=== PATIENT | male | born 1995 | race Caucasian/White ===

== ENCOUNTER 2022-03-31 18:19 | Emergency (ER) | payer MEDICARE, MEDICAID, SELFPAY ==
[2022-03-31 18:21] VITALS: BP 118/90; PULSE 115; RESP 14; TEMP 37.1; O2SAT 98; BMI 18.7
--- NOTE | 2022-03-31 18:37 | EDS_ITS ---
HPI History of Present Illness Chief Complaint: Lower Extremity Injury Detail of Chief Complaint: Nerve pain in legs Informant: patient Onset/Context/Timing Onset: Days Context: Gradual Onset Current Severity: Mild Maximum Severity: Moderate Narrative Narrative: Patient referred from urgent care secondary to leg pain/nerve pain. Patient has a history of cerebral palsy and diabetes. He has chronic muscle weakness. He also has a history of blood clots and is on Eliquis and aspirin. Patient reports recently getting out of the correction after a 4-month stay for rehab. He is noted increased pain to the posterior calves bilaterally, left more than right over the past couple of days. He does admit to sitting with his legs down more now that he is out of the correction but states that is the most comfortable position. He has noted increased swelling in his left leg especially. He denies any missed doses of his Eliquis. He denies back pain. No fever or chills. [facility] Medical History (Updated 03/31/22 @ 20:[address] Paz Laird MD) Acute thrombosis of left internal jugular vein Asthma Cataract of right eye Cerebral palsy Chronic diarrhea Cystic acne Diabetes DVT (deep venous thrombosis) Edema of both feet Failure to thrive Fatigue Iron deficiency anemia [facility] (current) use of insulin Low back pain Mass of right lung Muscle weakness Pancreatic insufficiency Pervasive developmental disorder Protein-calorie malnutrition, severe PTSD (post-traumatic stress disorder) Punctate keratitis of both eyes Recurrent UTI Secondary pancreatic insufficiency Sensorineural hearing loss of combined sites Thrombocytopenia Thrombocytosis Type 2 diabetes mellitus Urinary retention Home Medications FreeStyle Rihcard 14 Day [place] 03/31/22 [History Last Taken Unknown] FreeStyle Richard 14 Day Sensor 03/31/22 [History Last Taken Unknown] Ventolin HFA 03/31/22 [History Last Taken Unknown] acetaminophen 325 mg PO Q6H 03/31/22 [History Last Taken Unknown] apixaban [Eliquis] 5 mg PO BID 03/31/22 [History Last Taken Unknown] aspirin 81 mg PO DAILY 03/31/22 [History Last Taken Unknown] baclofen 5 mg PO TID 03/31/22 [History Last Taken Unknown] canagliflozin [Invokana] mg 03/31/22 [History Last Taken Unknown] diphenhydramine HCl [Benadryl] 25 mg PO TID PRN 03/31/22 [History Last Taken Unknown] diphenoxylate-atropine [Lomotil] 1 tab PO DAILY PRN 03/31/22 [History Last Taken Unknown] ferrous sulfate 325 mg PO DAILY 03/31/22 [History Last Taken Unknown] fluorometholone [FML Liquifilm] 1 drp 03/31/22 [History Last Taken Unknown] fluticasone propionate [Flovent Diskus] 2 inh INHALATION BID 03/31/22 [History Last Taken Unknown] furosemide 20 mg PO DAILY 03/31/22 [History Last Taken Unknown] gabapentin 100 mg PO TID 03/31/22 [History Last Taken Unknown] insulin aspart U-100 SUBCUT 03/31/22 [History Last Taken Unknown] insulin glargine [Lantus Solostar U-100 Insulin] SUBCUT 03/31/22 [History Last Taken Unknown] ketorolac 1 drp OPHTHALMIC (EYE) Q6H 03/31/22 [History Last Taken Unknown] lidocaine 1 patch TRANSDERMAL DAILY 03/31/22 [History Last Taken Unknown] xekfyh-hilsawbo-otjjnce [Creon] 3 cap PO TID 03/31/22 [History Last Taken Unknown] loperamide 2 mg PO Q6H 03/31/22 [History Last Taken Unknown] melatonin 5 mg PO QHS 03/31/22 [History Last Taken Unknown] menthol-zinc oxide 1 ea TOPICAL PRN PRN 03/31/22 [History Last Taken Unknown] mirtazapine 7.5 mg PO QHS 03/31/22 [History Last Taken Unknown] naproxen 500 mg PO Q12H 03/31/22 [History Last Taken Unknown] nut.tx.gluc.intol,lac-free,soy [Glucerna] 237 ml PO TID 03/31/22 [History Last Taken Unknown] pioglitazone 15 mg PO DAILY 03/31/22 [History Last Taken Unknown] potassium chloride 10 meq PO DAILY 03/31/22 [History Last Taken Unknown] prednisolone sodium phosphate 1 drp EACH EYE BID 03/31/22 [History Last Taken Unknown] prednisone 40 mg PO DAILY #10 tab 03/31/22 [Rx Last Taken Unknown] propylene glycol [Systane Complete] 1 drp EACH EYE TID 03/31/22 [History Last Taken Unknown] sodium bicarbonate 325 mg PO BID 03/31/22 [History Last Taken Unknown] soluble corn fiber [FiberCel] 5 g PO DAILY 03/31/22 [History Last Taken Unknown] tamsulosin 0.4 mg PO DAILY 03/31/22 [History Last Taken Unknown] tizanidine 4 mg PO TID PRN 03/31/22 [History Last Taken Unknown] Allergy/AdvReac Type Severity Reaction Status Date / Time No Known Allergies Allergy Verified 03/31/22 18:31 Surgical History (Updated 03/31/22 @ 19:07 by Ian Callaway) Status post cataract extraction and insertion of intraocular lens of left eye Social History Smoking Status: Never smoker ROS ROS ED Constitutional Constitutional ED: Denies chills or fever(s) Eyes Eyes: Denies change in vision ENT ENT ED: Denies sore throat Cardiovascular Cardiovascular: Denies chest pain Respiratory/Chest Respiratory/Chest: Denies cough or dyspnea Gastrointestinal Gastrointestinal: Denies abdominal pain, nausea or vomiting Genitourinary Genitourinary ED: Denies dysuria Musculoskeletal Musculoskeletal: Reports myalgias; Denies back pain or neck pain Integumentary Denies rash Neurologic Neurologic: Denies headache(s) or paresthesias Allergic/Immunologic Allergic/Immunologic ED: Denies urticaria EXAM Physical Exam Const Vital Signs: 03/31/22 18:21 Temperature 98.7 F Temperature Source Temporal Pulse Rate 115 H Respiratory Rate 14 Blood Pressure 118/90 H Blood Pressure Mean 99 Pulse Ox 98 Oxygen Delivery Method Room Air Positive well nourished and well developed General Appearance ED: well developed HEENT Reports moist mucous membranes Eyes PERRL Neck supple Chest Wall inspection of chest normal and palpation of chest normal Resp normal respiratory effort and clear to auscultation bilaterally Cardio regular rate and regular rhythm GI non-tender Palpation: soft Back/Spine Back/Spine Narrative: Scoliosis noted. No reproducible tenderness. Extremity Extremity Narrative: Tenderness3+ edema to the left lower leg. 1-2+ edema to the right lower leg. In the distal left lower leg and ankle. No erythema or excessive warmth. Good distal pulses. No tenderness at the knee or hip joint. Neuro oriented x3 Sensorium / Orientation: alert Psych mental status grossly normal Skin no rashes or lesions noted MDM MDM MDM Narrative Medical decision making narrative: I was able to review his recent discharge summary from [facility]. Patient had been admitted with Klebsiella pneumonia and bacteremia. Due to his multiple comorbid conditions blood work was obtained along with a venous ultrasound of the left leg. Lab Data Labs: Laboratory Results - last 24 hr 03/31/22 03/31/22 18:55 18:55 WBC 10.5 RBC 3.83 L Hgb 10.3 L Hct 33.1 L MCV 86.4 MCH 26.9 L MCHC 31.1 L RDW Std Deviation 49.5 H RDW Coeff of Kendra 15.6 H Plt Count 730 H MPV 8.6 Immature Gran % (Auto) 0.300 Neut % (Auto) 55.7 Lymph % (Auto) 29.4 Mower % (Auto) 10.5 H Eos % (Auto) 3.5 Baso % (Auto) 0.6 Absolute Neuts (auto) 5.9 Absolute Lymphs (auto) 3.09 Nucleated RBC % 0 Sodium 140 Potassium 4.2 Chloride 109 H Carbon Dioxide 27.0 Anion Gap 4 L BUN 15 Creatinine 0.84 Estim Creat Clear Calc 99.18 Est GFR (MDRD) Af Amer 142 Est GFR (MDRD) Non-Af 118 BUN/Creatinine Ratio 18.0 Glucose 117 H Calcium 9.5 Total Creatine Kinase 64 Radiography Diagnostic Testing: Clinical Impression(s) from Imaging Studies Venous Duplex 03/31/22 18:40 IMPRESSION: There is no demonstrated deep venous thrombosis. Electronically Signed: Jeff Sanchez MD at 20:03 EDT Reading Location ID and State: [facility] / [place] , Service support , Treatment and Re-Evaluation Narrative: CBC and chemistry studies significant for elevated platelet count at 730. When I reviewed his prior records his prior platelet count has been over 1000. Chemistry studies unremarkable. CK normal. Venous ultrasound of the leg reveals no acute DVT. Patient was given a dose of Solu-Medrol as he states steroids typically help his nerve pain. On repeat evaluation he is resting comfortably and states he has mild improvement in his pain. He will be given prednisone for home. [place] wrap is applied to the left leg to help with fluid reabsorption. He is to follow-up with his primary care physician in the next 1 to 2 weeks. Discharge Plan Triage Chief Complaint: Lower Extremity Injury ED Provider: Laird,Paz Dx/Rx/DC Orders Clinical Impression: Edema of left lower leg, Neuropathy Instructions: ED Neuropathy, Peripheral, ED Peripheral Edema, Unilateral Prescriptions: New prednisone 20 mg tablet 40 mg PO DAILY Qty: 10 RF: 0 No Action acetaminophen 325 mg Tablet 325 mg PO Q6H RF: 0 diphenoxylate-atropine [Lomotil] 2.5-0.025 mg Tablet 1 tab PO DAILY PRN (Reason: Diarrhea) RF: 0 diphenhydramine HCl [Benadryl] 25 mg Capsule 25 mg PO TID PRN (Reason: Allergic Symptoms) RF: 0 ferrous sulfate 325 mg (65 mg iron) Tablet 325 mg PO DAILY RF: 0 aspirin 81 mg Tablet 81 mg PO DAILY RF: 0 Creon 24,000-76,000 -120,000 unit Capsule,Delayed Release(Dr/Ec) 3 cap PO TID RF: 0 Eliquis 5 mg Tablet 5 mg PO BID RF: 0 baclofen 5 mg Tablet 5 mg PO TID RF: 0 ketorolac 0.5 % Drops 1 drp ophthalmic (eye) Q6H RF: 0 fluorometholone [FML Liquifilm] 0.1 % Drops,Suspension 1 drp RF: 0 lidocaine 5 % Adhesive Patch,Medicated 1 patch transdermal DAILY RF: 0 furosemide 20 mg Tablet 20 mg PO DAILY RF: 0 gabapentin 100 mg Capsule 100 mg PO TID RF: 0 Flovent Diskus 250 mcg/actuation Blister With Device 2 inh INHALATION BID RF: 0 Glucerna Liquid 237 ml PO TID RF: 0 insulin aspart U-100 100 unit/mL (3 mL) Insulin Pen SUBCUT RF: 0 insulin glargine [Lantus Solostar U-100 Insulin] 100 unit/mL (3 mL) Insulin Pen SUBCUT RF: 0 Invokana 300 mg Tablet RF: 0 FiberCel 5 gram/5.6 gram Powder 5 g PO DAILY RF: 0 (DME) FreeStyle Richard 14 Day [place] RF: 0 (DME) FreeStyle Richard 14 Day Sensor RF: 0 pioglitazone 15 mg Tablet 15 mg PO DAILY RF: 0 sodium bicarbonate 325 mg Tablet 325 mg PO BID RF: 0 loperamide 2 mg Tablet 2 mg PO Q6H RF: 0 potassium chloride 10 mEq Tablet Extended Release 10 meq PO DAILY RF: 0 tamsulosin 0.4 mg Capsule 0.4 mg PO DAILY RF: 0 prednisolone sodium phosphate 1 % Drops 1 drp EACH EYE BID RF: 0 naproxen 500 mg Tablet 500 mg PO Q12H RF: 0 mirtazapine 7.5 mg Tablet 7.5 mg PO QHS RF: 0 tizanidine 4 mg Capsule 4 mg PO TID PRN (Reason: Muscle Spasm) RF: 0 melatonin 5 mg Tablet 5 mg PO QHS RF: 0 Systane Complete 0.6 % Drops 1 drp EACH EYE TID RF: 0 menthol-zinc oxide 0.44-20 % Ointment 1 ea TOPICAL PRN PRN (Reason: Pain) RF: 0 Ventolin HFA RF: 0 Primary Care Provider: Care Physician,No Primary Referrals: Emerson Medel MD [NON-STAFF] - 1-2 Weeks Care Physician,No Primary [Primary Care Provider] - Disposition Disposition: Home, Self Care
--- NOTE | 2022-03-31 18:40 | US_ITS ---
STUDY: VENOUS DOPPLER ULTRASOUND - LEFT LOWER EXTREMITY REASON FOR EXAM: Male, 26 years old. LEG PAIN AND SWELLING LT LEG SWELLING TECHNIQUE: Ultrasound evaluation of the deep vein system to include jurado-scale imaging and compression was performed. Jurado-scale imaging and Doppler sonographic evaluation, including duplex spectral analysis and qualitative color flow sonography, was performed. COMPARISON: None. FINDINGS: Common Femoral Vein: Normal compression, spontaneity and augmentation. Normal color Doppler. Common Femoral Vein/Greater Saphenous Junction: Normal compression, spontaneity and augmentation. Normal color Doppler. Superficial Femoral Proximal: Normal compression, spontaneity and augmentation. Normal color Doppler. Superficial Femoral Middle: Normal compression, spontaneity and augmentation. Normal color Doppler. Superficial Femoral Distal: Normal compression, spontaneity and augmentation. Normal color Doppler. Popliteal Vein: Normal compression, spontaneity and augmentation. Normal color Doppler. Posterior Tibial Vein: Normal compression, spontaneity and augmentation. Normal color Doppler. Peroneal Vein: Normal compression, spontaneity and augmentation. Normal color Doppler. Soft tissue edema. There is no demonstrated deep venous thrombosis. US/Venous Duplex Imag/Limited/Uni IMPRESSION: There is no demonstrated deep venous thrombosis. Electronically Signed: Jeff Sanchez MD at 20:03 EDT Reading Location ID and State: [facility] / [place] , Service support ,
[2022-03-31] MEDS: MethylPREDNISolone 125 MG/2 ML Vial 100 MG IV (18:52)
--- NOTE | 2022-03-31 19:08 | CM.ED ---
Social Work Note Reason for Referral: No PCP SW reviewed chart. Pt is listed as having no PCP. Melissa TREADWELL in to speak with pt. Pt states that he does have a PCP and his PCP is through [facility]. Pt states he cannot remember the name of his PCP. Nupur Krause [employer], PROFILE GR[employer]ER
[2022-03-31 19:22] LABS: Absolute Lymphocyte Count 3.09 X10^3/uL (0.83-4.51); Absolute Neutrophil Count 5.9 X10^3/uL (2.0-7.7); Basophil# 0.06 X10^3/uL; Basophil% 0.6 % (0-1); Eosinophil# 0.37 X10^3/uL; Eosinophils% 3.5 % (0-5); Hematocrit 33.1 % (40-54); Hemoglobin 10.3 g/dL (13.0-16.5); Lymphocyte # 3.09 X10^3/ul (0.83-4.51); Lymphocyte % 29.4 % (19-41); Mean Corp Hgb Conc 31.1 g/dL (32-36); Mean Corpuscular Hgb 26.9 pg (27.0-32.0); Mean Corpuscular Volume 86.4 fL (80-94); Mean Platelet Vol. 8.6 fl (6.2-12.0); Monocyte% 10.5 % (0-10); NRBC Flagged by Analyzer 0 % (0-5); Neutrophil # 5.86 X10^3/uL (2.7-7.7); Neutrophil % 55.7 % (47-70); Platelet Count 730 K/mm3 (150-450); RBC Distribution Width CV 15.6 % (11.6-14.6); RBC Distribution Width SD 49.5 fl (35.1-43.9); Red Blood Count 3.83 M/mm3 (4.6-6.2); White Blood Count 10.5 K/mm3 (4.4-11.0)
[2022-03-31 19:40] LABS: Anion Gap 4 (5-15); BUN 15 mg/dL (7-18); CPK Total, Creatine Kinase 64 U/L (39-308); Calcium,Total 9.5 mg/dL (8.5-10.1); Chloride 109 mmol/L (98-107); Creatinine, Serum 0.84 mg/dL (0.70-1.30); EST Glomerular Filtration Rate 118 mL/min (>60); Est Glom Filt Rate - Afr Amer 142 mL/min (>60); Estimated Creatinine Clearance 99.18 ml/min; Glucose 117 mg/dL (74-106); Potassium 4.2 mmol/L (3.5-5.1); Sodium Level 140 mmol/L (136-145)
[2022-03-31 20:42] VITALS: BP 132/74; PULSE 78; RESP 15; TEMP 36.6; O2SAT 99
== END 2022-03-31 20:42 | disposition home or self-care (01) ==
PROVIDERS: Emergency Provider Emergency Medicine; Visit Provider Emergency Medicine
DX: R60.0 Localized edema (principal); G80.9 Cerebral palsy, unspecified; E11.40 Type 2 diabetes mellitus with diabetic neuropathy, unspecified; Z79.4 Long term (current) use of insulin; Z79.82 Long term (current) use of aspirin; Z79.01 Long term (current) use of anticoagulants; Z79.899 Other long term (current) drug therapy; Z86.718 Personal history of other venous thrombosis and embolism
CPT/HCPCS: 80048; 82550; 85025; 93971; 96374; 99283; A4216

== ENCOUNTER 2024-02-15 13:39 | Emergency (ER) | payer MEDICARE, MEDICAID, SELFPAY ==
[2024-02-15 13:44] VITALS: BP 134/88; PULSE 73; RESP 18; TEMP 36.3; O2SAT 97; BMI 27.2
--- NOTE | 2024-02-15 14:02 | ED.RN ---
no sandwiches or cheese sticks in fridge. called dietary to inform of minimal protein available and this RN put in order for meal tray for pt. EMS reported glucose 219 after dextrose, pt is now 124. peanut butter on evaristo crackers and OJ given at this time.
--- NOTE | 2024-02-15 14:10 | EX.ED.DYSGE1 ---
HPI History of Present Illness Chief Complaint: Hypoglycemia Detail of Chief Complaint: Low blood pressure today treated by squad prior to arrival. Informant: patient and other (Staff that is with him.) Onset/Context/Timing Onset: Today Context: Sudden Onset Current Severity: Gone Maximum Severity: Moderate Narrative Narrative: 28-year-old male history of diabetes was and's work strong today and had low blood sugar 29. He did get something to eat. Squad was called they gave him amp of D10. He is feeling much better at this time. Denies recent illness. He has chronic diarrhea that is not new or changed. Denies any fever. No vomiting. He did not eat breakfast today he took his insulin before he had lunch she did have lunch and that is when his blood sugar dropped. Prior similar symptoms: Yes Recent Illness/Hospitalization: No PFSH [facility] Medical History (Updated 02/15/24 @ 14:[address] Gianni Chery MD) Acute thrombosis of left internal jugular vein Asthma Cataract of right eye Cerebral palsy Chronic diarrhea Cystic acne Diabetes DVT (deep venous thrombosis) Edema of both feet Failure to thrive Fatigue Iron deficiency anemia half-way (current) use of insulin Low back pain Mass of right lung Muscle weakness Pancreatic insufficiency Pervasive developmental disorder Protein-calorie malnutrition, severe PTSD (post-traumatic stress disorder) Punctate keratitis of both eyes Recurrent UTI Secondary pancreatic insufficiency Sensorineural hearing loss of combined sites Thrombocytopenia Thrombocytosis Type 2 diabetes mellitus Urinary retention Home Medications FreeStyle Richard 14 Day [place] 03/31/22 [History Last Taken Unknown] FreeStyle Richard 14 Day Sensor 03/31/22 [History Last Taken Unknown] Ventolin HFA 03/31/22 [History Last Taken Unknown] acetaminophen 325 mg tablet 325 mg PO Q6H 03/31/22 [History Last Taken Unknown] apixaban 5 mg tablet (Eliquis) 5 mg PO BID 03/31/22 [History Last Taken Unknown] aspirin 81 mg tablet 81 mg PO DAILY 03/31/22 [History Last Taken Unknown] baclofen 5 mg tablet 5 mg PO TID 03/31/22 [History Last Taken Unknown] canagliflozin 300 mg tablet (Invokana) mg 03/31/22 [History Last Taken Unknown] diphenhydramine HCl 25 mg capsule (Benadryl) 25 mg PO TID PRN Allergic Symptoms 03/31/22 [History Last Taken Unknown] diphenoxylate-atropine 2.5 mg-0.025 mg tablet (Lomotil) 1 tab PO DAILY PRN Diarrhea 03/31/22 [History Last Taken Unknown] ferrous sulfate 325 mg (65 mg iron) tablet 325 mg PO DAILY 03/31/22 [History Last Taken Unknown] fluorometholone 0.1 % eye drops,suspension (FML Liquifilm) 1 drp 03/31/22 [History Last Taken Unknown] fluticasone propionate 250 mcg/actuation blister powder for inhalation (Flovent Diskus) 2 inh inhalation BID 03/31/22 [History Last Taken Unknown] furosemide 20 mg tablet 20 mg PO DAILY 03/31/22 [History Last Taken Unknown] gabapentin 100 mg capsule 100 mg PO TID 03/31/22 [History Last Taken Unknown] insulin aspart U-100 100 unit/mL (3 mL) subcutaneous pen subcut 03/31/22 [History Last Taken Unknown] insulin glargine 100 unit/mL (3 mL) subcutaneous pen (Lantus Solostar U-100 Insulin) subcut 03/31/22 [History Last Taken Unknown] ketorolac 0.5 % eye drops 1 drp ophthalmic (eye) Q6H 03/31/22 [History Last Taken Unknown] lidocaine 5 % topical patch 1 patch transdermal DAILY 03/31/22 [History Last Taken Unknown] [id number] 24,000-76,000-120,000 unit capsule,delayed rel (Creon) 3 cap PO TID 03/31/22 [History Last Taken Unknown] loperamide 2 mg tablet 2 mg PO Q6H 03/31/22 [History Last Taken Unknown] melatonin 5 mg tablet 5 mg PO QHS 03/31/22 [History Last Taken Unknown] menthol 0.44 %-zinc oxide 20 % topical ointment 1 ea topical PRN PRN Pain 03/31/22 [History Last Taken Unknown] mirtazapine 7.5 mg tablet 7.5 mg PO QHS 03/31/22 [History Last Taken Unknown] naproxen 500 mg tablet 500 mg PO Q12H 03/31/22 [History Last Taken Unknown] nut.tx.gluc.intol,lac-free,soy (Glucerna oral liquid) 237 ml PO TID 03/31/22 [History Last Taken Unknown] pioglitazone 15 mg tablet 15 mg PO DAILY 03/31/22 [History Last Taken Unknown] potassium chloride 10 mEq tablet,extended release 10 meq PO DAILY 03/31/22 [History Last Taken Unknown] prednisolone sodium phosphate 1 % eye drops 1 drp EACH EYE BID 03/31/22 [History Last Taken Unknown] prednisone 20 mg tablet 40 mg (2 x 20 mg) PO DAILY #10 tabs 03/31/22 [Rx Last Taken Unknown] propylene glycol 0.6 % eye drops (Systane Complete) 1 drp EACH EYE TID 03/31/22 [History Last Taken Unknown] sodium bicarbonate 325 mg tablet 325 mg PO BID 03/31/22 [History Last Taken Unknown] soluble corn fiber 5 gram/5.6 gram oral powder (FiberCel) 5 g PO DAILY 03/31/22 [History Last Taken Unknown] tamsulosin 0.4 mg capsule 0.4 mg PO DAILY 03/31/22 [History Last Taken Unknown] tizanidine 4 mg capsule 4 mg PO TID PRN Muscle Spasm 03/31/22 [History Last Taken Unknown] Allergy/AdvReac Type Severity Reaction Status Date / Time No Known Allergies Allergy Verified 02/15/24 13:42 Surgical History Status post cataract extraction and insertion of intraocular lens of left eye Social History Smoking Status: Never smoker ROS ROS ED ROS Narrative Chronic diarrhea. Denies recent illness. Review of Systems ROS Unobtainable: Denies due to encephalopathy Constitutional Constitutional ED: Denies chills or fever(s) Eyes Eyes: Denies blurry vision ENT ENT ED: Denies ear pain Cardiovascular Cardiovascular: Denies chest pain Respiratory/Chest Respiratory/Chest: Denies cough or dyspnea Gastrointestinal Gastrointestinal: Reports diarrhea; Denies abdominal pain, constipation, melena, nausea or vomiting Genitourinary Genitourinary ED: Denies dysuria or hematuria Musculoskeletal Musculoskeletal: Denies arthralgias Integumentary Denies abscess or Abrasions Psychiatric Psychiatric: Denies anxiety Hematologic/Lymphatic Hematologic/Lymphatic: Reports none Allergic/Immunologic Allergic/Immunologic ED: Denies mouth swelling, tongue swelling or urticaria EXAM Physical Exam Narrative Exam Narrative: Well-appearing 20-year-old male vital signs stable afebrile. Pulse ox 97% on room air no hypoxia. HEENT exam dry [place]. No signs of trauma. Moist mucous membranes. Neck nontender. Lungs clear to auscultation bilaterally. Heart regular rhythm rate about 70 no murmur. Chest wall and ribs nontender. Abdomen soft nontender. Back nontender. Moving all 4 extremities. 5 of 5 manager behavioral strength. Dorsi plantarflexion intact. Nontender no edema. No rashes. Neurologically is awake and alert. Answering questions and following commands. No focal motor deficits. Benign exam. Const Vital Signs: 02/15/24 13:44 02/15/24 13:47 Temperature 97.4 F L Temperature Source Oral Pulse Rate 73 Respiratory Rate 18 Respiratory Effort Normal Non-Labored Respiratory Pattern Normal Blood Pressure 134/88 H Blood Pressure Mean 103 Pulse Ox 97 Oxygen Delivery Method Room Air Positive well nourished and well developed; Negative for obese, cachectic, contractures or unkempt General Appearance ED: well developed and NAD; Negative for unkempt, cachectic, contractures, cyanotic, diaphoretic or pallor Nutritional Appearance: Negative for cachectic or obese HEENT Reports moist mucous membranes; Denies dry mucous membranes Negative for trauma or tenderness Mouth ED: No dry mucous membranes Mouth: No dry mucous membranes Eyes PERRL and EOMs intact bilaterally General Eye ED: Negative for pale conjunctiva or scleral icterus Neck no lymphadenopathy, supple and no JVD General: Negative for tenderness Lymph Lymphatic: Negative for other Chest Wall inspection of chest normal and palpation of chest normal Resp normal respiratory effort and clear to auscultation bilaterally Effort and Inspection: Negative for retractions Auscultation: Negative for rales, rhonchi or wheezes Cardio regular rate, regular rhythm, S1 normal heart sound, S2 normal heart sound and no murmurs Palpation: Negative for palpable S3 or palpable S4 Rate: Negative for bradycardia or tachycardic Rhythm: Negative for abnormal rhythm GI normal to inspection, nondistended, normoactive bowel sounds, non-tender, non-distended and no masses; Negative for hepatosplenomegaly Auscultation: normoactive bowel sounds Palpation: soft; Negative for tender, guarding or rebound tenderness present Back/Spine no CVA tenderness General Back: Negative for CVA tenderness Cervical Spine: Negative for cervical spine tenderness Thoracic Spine / Upper Back: Negative for thoracic spinal tenderness or paraspinal muscle tenderness Lumbar Spine / Lower Back: Negative for lumbar spinal tenderness Extremity normal to inspection General Extremety ED: Negative for edema or tenderness General Extremity: Negative for edema Neuro oriented x3 and CN's II-XII intact bilaterally Sensorium / Orientation: alert; Negative for orientation impaired, lethargic or stuporous Motor Exam: strength 5/5 throughout; Negative for general weakness or strength abnormal Psych mental status grossly normal Appearance: Negative for unkempt Attitude: No agitated Mood & Affect: Negative for depressed, anxious or tearful Skin no rashes or lesions noted, no wounds and skin turgor normal General Skin Exam: Negative for jaundice or pallor Lesions: No lesion noted Rashes: No rashes noted Trauma: Negative for abrasion Wounds: Negative for wounds noted MDM MDM MDM Narrative Medical decision making narrative: 28-year-old male hypoglycemic event today history of diabetes. Check a BMP. Currently he is doing well after squad gave him D10. Repeat exam patient is doing well he has had stuff to eat here. And I will have the nurse recheck a blood sugar it has been an hour since he ate and make a decision if he is okay to be discharged home. Patient doing well at 4:39 PM. Most recent blood sugar which was just done was 292. He will be discharged home. Instructed to watch his blood sugars closely. Recheck it prior to going to bed tonight and first in the morning. Lab Data Attestation: I reviewed the patient's lab results. Lab results narrative: Chemistries show gap of 6. BUN 29 creatinine 1.65 which is worse than baseline. Prior kidney function was normal in 2021. Labs: Laboratory Results - last 24 hr 02/15/24 02/15/24 02/15/24 10:05 13:54 14:26 Sodium 141 Potassium 3.6 Chloride 106 Carbon Dioxide 29.0 Anion Gap 6 BUN 29 H Creatinine 1.65 H Estim Creat Clear Calc 60.15 Est GFR (MDRD) Af Amer 64 Est GFR (MDRD) Non-Af 53 L BUN/Creatinine Ratio 17.6 Glucose 101 Calcium 9.6 POC Glucose 124 H 82 Discharge Plan Triage Chief Complaint: Hypoglycemia ED Provider: Gianni Chery Dx/Rx/DC Orders Clinical Impression: Diabetic hypoglycemia, History of diabetes mellitus Instructions: ED Diabetic Insulin Reaction Prescriptions: No Action acetaminophen 325 mg Tablet 325 mg PO Q6H diphenoxylate-atropine [Lomotil] 2.5-0.025 mg Tablet 1 tab PO DAILY PRN (Reason: Diarrhea) diphenhydramine HCl [Benadryl] 25 mg Capsule 25 mg PO TID PRN (Reason: Allergic Symptoms) ferrous sulfate 325 mg (65 mg iron) Tablet 325 mg PO DAILY aspirin 81 mg Tablet 81 mg PO DAILY Creon 24,000-76,000 -120,000 unit Capsule,Delayed Release(Dr/Ec) 3 cap PO TID Eliquis 5 mg Tablet 5 mg PO BID baclofen 5 mg Tablet 5 mg PO TID ketorolac 0.5 % Drops 1 drp ophthalmic (eye) Q6H fluorometholone [FML Liquifilm] 0.1 % Drops,Suspension 1 drp lidocaine 5 % Adhesive Patch,Medicated 1 patch transdermal DAILY furosemide 20 mg Tablet 20 mg PO DAILY gabapentin 100 mg Capsule 100 mg PO TID Flovent Diskus 250 mcg/actuation Blister With Device 2 inh INHALATION BID Glucerna Liquid 237 ml PO TID insulin aspart U-100 100 unit/mL (3 mL) Insulin Pen SUBCUT insulin glargine [Lantus Solostar U-100 Insulin] 100 unit/mL (3 mL) Insulin Pen SUBCUT Invokana 300 mg Tablet FiberCel 5 gram/5.6 gram Powder 5 g PO DAILY (DME) FreeStyle Richard 14 Day [place] (DME) FreeStyle Richard 14 Day Sensor pioglitazone 15 mg Tablet 15 mg PO DAILY sodium bicarbonate 325 mg Tablet 325 mg PO BID loperamide 2 mg Tablet 2 mg PO Q6H potassium chloride 10 mEq Tablet Extended Release 10 meq PO DAILY tamsulosin 0.4 mg Capsule 0.4 mg PO DAILY prednisolone sodium phosphate 1 % Drops 1 drp EACH EYE BID naproxen 500 mg Tablet 500 mg PO Q12H mirtazapine 7.5 mg Tablet 7.5 mg PO QHS tizanidine 4 mg Capsule 4 mg PO TID PRN (Reason: Muscle Spasm) melatonin 5 mg Tablet 5 mg PO QHS Systane Complete 0.6 % Drops 1 drp EACH EYE TID menthol-zinc oxide 0.44-20 % Ointment 1 ea TOPICAL PRN PRN (Reason: Pain) Ventolin HFA prednisone 20 mg tablet 40 mg PO DAILY Qty: 10 0RF Primary Care Provider: Ebony Maldonado NP Referrals: Care Physician,No Primary [Non-Staff] - Ebony Maldonado NP, [employer]ISTERED SALES ASSISTANT-[employer] [Primary Care Provider] - As Needed Activity Restrictions/Additional Instructions: Watch her blood sugars very closely. Check it before you go to bed tonight. Eat a snack before you go to bed tonight. I did much prefer it runs normal are a little high than low over the next several days. Make sure you check it for Du in the morning also. If it continues to get lower return for further evaluation. Disposition Disposition: Home, Self Care
[2024-02-15 14:13] LABS: Bedside Glucose 124 mg/dL (74-106)
[2024-02-15 14:32] LABS: Anion Gap 6 (5-15); BUN 29 mg/dL (7-18); BUN/Creat Ratio 17.6 RATIO (10-20); Calcium,Total 9.6 mg/dL (8.5-10.1); Chloride 106 mmol/L (98-107); Creatinine, Serum 1.65 mg/dL (0.70-1.30); EST Glomerular Filtration Rate 53 mL/min (>60); Est Glom Filt Rate - Afr Amer 64 mL/min (>60); Estimated Creatinine Clearance 60.15 ml/min; Glucose 101 mg/dL (74-106); Potassium 3.6 mmol/L (3.5-5.1); Sodium Level 141 mmol/L (136-145)
--- NOTE | 2024-02-15 14:38 | ED.RN ---
ate meal tray of cheeseburger and sides. glucose 82. called for another burger and given
[2024-02-15 14:45] LABS: Bedside Glucose 82 mg/dL (74-106)
--- NOTE | 2024-02-15 14:56 | ED.RN ---
verified with pt that he only took 8 units of insulin at lunch
[2024-02-15 16:55] LABS: Bedside Glucose 292 mg/dL (74-106)
[2024-02-15 16:57] VITALS: BP 127/83; PULSE 76; RESP 15; TEMP 36.7; O2SAT 97
== END 2024-02-15 16:58 | disposition home or self-care (01) ==
PROVIDERS: Emergency Provider Emergency Medicine; PCP Nurse Practitioner Family; Visit Provider Emergency Medicine
DX: E11.649 Type 2 diabetes mellitus with hypoglycemia without coma (principal); Z86.718 Personal history of other venous thrombosis and embolism
CPT/HCPCS: 80048; 82962; 99283; A4216